=== PATIENT | male | born 1975 | race Caucasian/White ===

== ENCOUNTER 2024-12-11 10:37 | Outpatient (AMB) | payer OTHER, SELFPAY ==
[2024-12-11 10:51] VITALS: BP 130/60; PULSE 58; O2SAT 97; BMI 32.6
--- NOTE | 2024-12-11 10:51 | A.OFFVIS_ITS ---
Vital Signs 12/11/24 10:51 Height 5 ft 10 in Weight 227 lb 1.218 oz BMI 32.6 BP 130/60 Blood Pressure Location Lt brachial Position Sitting Pulse 58 Pulse Source Pulse Oximeter Pulse Oximetry (%) 97 Oxygen Delivery Method Room Air Intake Visit Reasons: Shortness of breath Intake Note: pt is here as new patient for possible asthma, and shortness of breath Testing Specialist Required: No Allergies No Known Allergies Allergy (Verified 12/11/24 11:31) Do you need a note to return to daycare/school/sports/work: No HPI HPI Shortness of breath: Details: THIS 49 YEARS OLD GENTLEMAN IS BEING SEEN FOR THE 1ST TIME, IN REFERENCE TO HIS SHORTNESS OF BREATH, DIFFICULTY IN BREATHING AT NIGHT, AND HISTORY OF OBSTRUCTIVE SLEEP APNEA, DIAGNOSED ABOUT A YEAR AGO. HE ALSO HAS HISTORY OF NASAL ALLERGIES OR MORE THAN 7 YEARS. HIS CURRENT ISSUE IS FEELING SHORT OF BREATH AT NIGHT, IF HE IS NOT ABLE TO GET ENOUGH AIR IN THE LUNGS. AND IT MAKES HIM WAKE UP. DURING THE DAYTIME HE DOES HAVE SOME SHORTNESS OF BREATH WHEN HE WALKS AROUND, FAST OR WALKS UP HILL. DURING OUR CONVERSATION IT WAS DISCOVERED THAT HE DOES HAVE HISTORY OF OBSTRUCTIVE SLEEP APNEA DIAGNOSED BY IS SLEEP STUDY ABOUT 1 YEAR AGO AT [facility]. HE DOES HAVE OBSTRUCTIVE, SLEEP APNEA , INITIALLY HE WAS RELATIVELY NONCOMPLIANT AND INSURANCE WANTED TO TAKE HIS CPAP DEVICE BACK. BUT HE OPTED TO BY THE CPAP MACHINE AND ALSO HAS BEEN BUYING THE SUPPLIES [id number]. HE HAS TRIED NASAL WORSE IS FULLFACE MASK AND VARIOUS DEGREES OF HUMIDIFICATION, BUT NOTHING SEEMS TO BE VERY COMFORTABLE. SO EVEN WITH THE CPAP MASK ON DURING THE NIGHT HE DOES HAVE PERIODS OF FEELING THAT HE IS NOT GETTING ENOUGH AIR. HE EXPRESSED IS DISSATISFACTION WITH THE CURRENT SLEEP APNEA PROVIDER. AND WANTS US TO TAKE OVER HIS MANAGEMENT. 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 THIS MAY HAVE CONTRIBUTED TO INCREASED SEVERITY OF HIS SLEEP APNEA. HE ALSO HAS CHRONIC NASAL BLOCKAGE, CONSIDERED TO BE DUE TO ALLERGIC RHINITIS. HAD ALLERGY TESTING MORE THAN 7 YEARS AGO AND AFTER THAT HAS BEEN ON IMMUNOTHERAPY ( BY DR. JOAQUIN ) . WHILE HE DOES NOT, HAVE MUCH SNEEZING OR RUNNY NOSE HE STILL HAS ENOUGH OBSTRUCTIVE SYMPTOMS DUE TO HYPERTROPHIC NASAL TURBINATES. HE HAS NOW STARTED EXPERIENCING SHORTNESS OF BREATH ON DOING DAY-TO-DAY WORK. BUT HE DENIES ANY WHEEZING ATTACKS. THIS MAY BE DUE TO WEIGHT GAIN AND POOR PHYSICAL CONDITION . HE IS NONSMOKER . [facility] Medical History (Updated 12/11/24 @ 11:53 by Rosmery Acuña MD) Dyspepsia Dyspnea on exertion LUIS E on CPAP Obesity (BMI 30.0-34.9) Allergic rhinitis Social History Patient Tobacco Use Status: Never used Tobacco Review of Systems Const All systems reviewed & are unremarkable except as noted in HPI and below Reports difficulty sleeping Eyes Reports no additional complaints ENT Reports nasal congestion, Reports nasal discharge and Reports nasal obstruction (CHRONIC NASAL SYMPTOMS DUE TO ALLERGIES AND HYPERTROPHY OF THE TURBINATES.) Card Denies irregular heart rhythm, Denies leg edema and Denies lightheadedness Resp Reports as per HPI GI Reports belching, Reports bloating, Reports dyspepsia and Reports other (SAYS THAT HIS GI SYMPTOMS ARE DUE TO CHRONIC ALLERGIES) Reports no additional complaints Musc Reports no additional complaints Skin/Breast Reports system reviewed and no additional complaints, except as documented Neuro Reports no additional complaints Psych Reports no additional complaints Endo Reports no additional complaints Lacho/Lymph Reports no additional complaints Physical Exam Vital Signs: Last Vital Signs Pulse 58 12/11/24 10:51 BP 130/60 12/11/24 10:51 Pulse Ox 97 12/11/24 10:51 Oxygen Delivery Method Room Air 12/11/24 10:51 BMI result Body Mass Index 32.6 Const General: healthy appearing (EXCEPT FOR BEING OVERWEIGHT), comfortable, no acute distress, alert and awake Orientation/consciousness: patient oriented x3 HEENT Head: Yes normal to inspection General nose exam: No nasal polyps present, mucous membranes and turbinates a bnormal (THERE IS MODERATE HYPERTROPHY OF THE NASAL TURBINATES, ) and No nasal discharge present Face and sinus: Yes sinuses nontender Mouth: oropharynx normal Throat: Yes posterior oropharynx normal Eyes General: appearance normal, both eyes and all related structures Neck Other: NECK SIZE 17 IN Neck: Yes normal visual inspection, Yes no lymphadenopathy, Yes trachea midline and Yes no JVD Thyroid: Thyroid normal Chest Chest palpation & inspection: normal inspection of the chest, normal palpation of entire chest wall and no tenderness Resp Effort & Inspection: normal respiratory effort Auscultation: clear to auscultation bilaterally, no crackles, no rhonchi and no wheezes Cardio Palpation: normal PMI Rate: regular rate Rhythm: regular rhythm Heart sounds: no gallops and no murmurs Peripheral pulses: Peripheral pulses 2+ throughout GI Palpation (GI): Soft to palpation, nontender, No hepatosplenomegaly present and no masses Auscultation: normal bowel sounds Back/Spine/Pelvis Thoracic/Lumbar Spine: thoracic and lumbar spine normal to inspection and thoraco-lumbar ROM limited Skin General skin exam: no rashes or lesions noted Neuro General: patient oriented x3 and no focal motor deficits Cranial nerves: Yes CN's II-XII intact bilaterally Extrem General: Yes normal to inspection, Yes no clubbing, cyanosis or edema and Yes no calf tenderness Psych Appearance: grossly normal and well kempt Speech and movement: Normal speech and movement present Assessment & Plan Assessment & Plan (1) Allergic rhinitis: Comment: MORE THAN 7 YEARS HISTORY OF, NASAL CONGESTION WITH POSTNASAL DRIP. HAS HAD ALLERGY TESTING AND IS CURRENTLY ON IMMUNOTHERAPY, STILL HAS SIGNIFICANT NASAL BLOCKAGE ESPECIALLY AT NIGHT Code(s): J30.9 - Allergic rhinitis, unspecified Category: Medical Plan: CONTINUE TREATMENT WITH THE ENT/SORTER LAUNDRY ARTICLES, DR. JOAQUIN MAY USE FLONASE 2 SPRAY EACH NOSTRIL DAILY. MAY TRY CETIRIZINE 10 MG ONCE A DAY. (2) Obesity (BMI 30.0-34.9): Comment: HE IS MODERATELY OBESE, SAY IS THAT HE IS RELATIVELY INACTIVE BECAUSE OF HIS ONGOING BACK PAIN, HE HAS NOT BEEN ABLE. TO LOSE WEIGHT, AND THIS HAS INCREASED THE SYMPTOMS OF HIS SLEEP APNEA. Code(s): E66.811 - Obesity, class 1 Category: Medical Plan: I TALKED TO HIM ABOUT THE DIET AND NEED TO DO EXERCISE. BECAUSE OF BACK PAIN HE CAN NOT DO ACTIVE GYM EXERCISES BUT IT WILL BE OKAY TO WALK AT LEAST 2 MILES AT A BRISK PACE. CUT DOWN THE INTAKE OF CARBOHYDRATES AND PORTIONS OF THE NIGHTS. HE NEEDS TO LOSE ABOUT 20-25 LB OF BY. (3) LUIS E on CPAP: Comment: BECAUSE OF HIS OBESITY AND DIFFICULTY IN SLEEPING AT NIGHT HE QUESTIONED HIM ABOUT SLEEP APNEA. HE TOLD ME THAT HE HAS ALREADY BEEN TESTED AND WAS FOUND TO HAVE SLEEP APNEA. HE IS TRYING TO USE THE CPAP SINCE 1 YEAR AGO AND STILL HAVING DIFFICULTY IN GETTING GOOD SLEEP. HE COMPLAINS OF NASAL BLOCKAGE AND DIFFICULTY TO INHALE ENOUGH AIR AT NIGHT, WHICH WAKES HIM UP. THIS MAY BE DUE TO CHRONIC HYPERTROPHY OF THE NASAL TURBINATES. Code(s): G47.33 - Obstructive sleep apnea (adult) (pediatric) Category: Medical Plan: HE WANTS US TO MANAGE HIS SLEEP APNEA AND CPAP USAGE. WE ARE GOING TO GET COPY OF HIS SLEEP STUDY. I TALKED TO HIM ABOUT MEASURES TO IMPROVE HIS COMPLIANCE. HE CAN USE BETWEEN NASAL TO FULLFACE MASK AND C WHICHEVER IS MORE COMFORTABLE. THE BEST SOLUTION WOULD BE TO LOSE WEIGHT WHICH HE IS FULLY AWARE OF. ADVISED HIM TO USE FLONASE 2 SPRAY IN EACH NOSTRIL DURING THE DAYTIME, AND USE ATROVENT NASAL SPRAY IN EACH NOSTRIL BEFORE PUTTING ON THE CPAP. HE MAY ALSO USE CETIRIZINE 10 MG TABLET A FEW HOURS BEFORE GOING TO SLEEP. HE IS ADVISED TO USE ENOUGH HUMIDIFICATION. (4) Dyspnea on exertion: Comment: COMPLAINS OF NONSPECIFIC SHORTNESS OF BREATH ON EXERTION. IT MAY BE CONTRIBUTED BY 1. WEIGHT, 2- POOR PHYSICAL CONDITIONING-3 POSSIBLE BRONCHIAL ASTHMA/RESTRICTIVE LUNG DISEASE 4 POOR MANAGEMENT OF THE SLEEP APNEA Code(s): R06.09 - Other forms of dyspnea Category: Medical Plan: PATIENT WOULD BE SCHEDULED TO HAVE COMPLETE PULMONARY FUNCTION TEST. ADVISED TO LOSE WEIGHT SLOWLY. ADVISED TO DO DEEP BREATHING. EXERCISES DURING THE DAYTIME WILL REVISIT THIS SUBJECT AFTER THE PULMONARY FUNCTION TEST. (5) Dyspepsia: Comment: HE HAS FREQUENT BLOATING, AND UNEASY FEELING IN THE STOMACH, AFTER EATING. HE CLAIMS THAT HE HAS SOME FOOD ALLERGIES. Code(s): R10.13 - Epigastric pain Category: Medical Plan: ADVISED HIM TO AVOID THE FOODS WHICH CAUSE MORE GAS. CUT DOWN THE FOOD PORTIONS. HE NEEDS TO LOSE SOME WEIGHT Orders: Orders PFT pulmonary function test Today E66.811 - Obesity, class 1, G47.33 - Obstructive sleep apnea (adult) (pediatric), J30.9 - Allergic rhinitis, unspecified, R06.09 - Other forms of dyspnea Coding Level of Care Code New Pt Level 4 (25582) Diagnoses Allergic rhinitis J30.9 Obesity (BMI 30.0-34.9) E66.811 LUIS E on CPAP G47.33 Dyspnea on exertion R06.09 Dyspepsia R10.13
--- OUTSIDE RECORDS SUMMARY | 2024-12-11 12:23 | XMS_ITS | Clinical Summary ---
Author Organization [facility] Address [address] [place] [address] Care Team Providers Care General Service Officer Name Role Phone Unavailable Primary Care Provider Unavailabl e Social History Tobacco Use Types Packs/Day Years Used Date Smoking Tobacco: Never Assessed Sex and Gender Information Value Date Recorded Sex Assigned at Not on file Gender Identity Not on file Sexual Orientation Not on file Plan of Treatment Not on file
--- OUTSIDE RECORDS SUMMARY | 2024-12-11 12:23 | XMS_ITS | Clinical Summary ---
Author Organization [facility] Address [address] [place] [address] Care Team Providers Care Senior Analyst Developer Name Role Phone Unavailable Primary Care Provider Unavailabl e Social History Tobacco Use Types Packs/Day Years Used Date Smoking Tobacco: Never Assessed Sex and Gender Information Value Date Recorded Sex Assigned at Not on file Gender Identity Not on file Sexual Orientation Not on file Plan of Treatment Health Maintenance Due Date Last Done Comments Hepatitis C Virus Screening 1976 HIV Screening 1989 DTaP/Tdap/Td Vaccines (1 - Tdap) 1995 Hepatitis B Vaccines (1 of 3 - 19+ 3-dose series) 1995 COVID-19 Vaccine (2023-2 5 season) 2024 Pneumococcal Vaccine: Pediat andres (0-5 Years) and At-Risk Patients (6 to 49 Years) Aged Out No longer eligible b ased on patient's age to complete this topic
== END 2024-12-11 11:33 | disposition home or self-care (01) ==
PROVIDERS: PCP Internal Medicine; Referring Provider Otolaryngology; Visit Provider Internal Medicine
DX: J30.9 Allergic rhinitis, unspecified (principal); E66.811 Obesity, class 1; G47.33 Obstructive sleep apnea (adult) (pediatric); R06.09 Other forms of dyspnea; R10.13 Epigastric pain
CPT/HCPCS: 99204

== ENCOUNTER → 2024-12-11 10:37 | Outpatient (BNVA) | payer OTHER, SELFPAY | PROVIDERS: PCP Internal Medicine; Referring Provider Otolaryngology; Visit Provider Internal Medicine ==